=== PATIENT | male | born 1975 | race Caucasian/White ===

== ENCOUNTER 2016-10-16 12:58 | Emergency (ER) | payer MEDICAID ==
[~2016-10-16] VITALS: Ht 170.2 cm; Wt 77.0 kg
[2016-10-16 13:06] VITALS: BP 139/84
[2016-10-16] MEDS ORDERED: THIAMINE 100 MG/ML, 2ML ONE (13:12)
[2016-10-16] MEDS ORDERED: LORazepam 1MG TABLET ONE (13:13)
[2016-10-16] MEDS ORDERED: LORazepam 1MG TABLET PO ONE (13:30)
[2016-10-16] MEDS ORDERED: THIAMINE 100 MG/ML, 2ML IM ONE (13:30)
[2016-10-16 13:41] LABS: HEMATOCRIT 43.2 % (39.2-51.8); HEMOGLOBIN 14.4 g/dL (13.7-18.0); WHITE BLOOD COUNT 4.6 x10^3/uL (3.4-10)
[2016-10-16 13:51] LABS: BLOOD UREA NITROGEN 7 mg/dL (7-18)
== END 2016-10-16 14:07 | disposition home or self-care (01) ==
LOC: ED 13:38
DX: R56.9 Unspecified convulsions (principal); F10.239 Alcohol dependence with withdrawal, unspecified
CPT/HCPCS: 36415; 80048; 80307; 82040; 85025; 96372; 99284; J3411